=== PATIENT | female | born 1990 | race American Indian/Alaskan Native ===

== ENCOUNTER 2022-05-29 13:25 | Outpatient (CLI) | payer OTHER ==
[2022-05-29] MEDS ORDERED: LACTATED RINGERS 1,000 ML IV ONE (13:35)
--- NOTE | 2022-05-29 15:17 | Ultrasound Report ---
ULTRASOUND OBSTETRIC COMPLETE INDICATION / CLINICAL INFORMATION: Evaluate well-being. No care. Clinical Gestational Age (GA) in weeks.days: 26.5 TECHNIQUE: Transabdominal. COMPARISON: None available. FINDINGS: NUMBER: Single PRESENTATION: cephalic PLACENTA: anterior and free of the os. MATERNAL ADNEXA: No significant abnormality. AMNIOTIC FLUID VOLUME: normal AMNIOTIC FLUID INDEX (YANELY) in cm (if measured): Not measured ANATOMY: organs (including the bladder, stomach, kidneys, heart, umbilical cord, diaphragm, cord inserti on, spine and intracranial structures) are visualized and show no significant abnormality with the fo llowing exception(s): None. MEASUREMENTS: - Biparietal Diameter = 6.96 cm = 28.0 weeks.days - Head Circumference = 25.75 cm = 28.0 weeks.days - Abdominal Circumference = 25.44 cm = 29.4 weeks.days - Femur Length = 5.25 cm = 28.0 weeks.days - Estimated Weight (in grams, if calculated): 1285 - Heart Rate (beats per minute): 145 ADDITIONAL FINDINGS: None. PERCENTILE ESTIMATED WEIGHT (if calculated): 98 AVERAGE ULTRASOUND AGE (AUA) in weeks.days = 28.3 IMPRESSION: 1. Single intrauterine with AUA of 28.3 weeks.days 2. No significant sonographic abnormality. Signer Name: Artie Velazquez MD Signed: 05/29/2022 3:13 PM Workstation Name: [id number]
[2022-05-29 16:24] LABS: Basophils # (Auto) 0.1 K/mm3 (0.0-0.1); Basophils % (Auto) 1.4 % (0.0-1.8); Eosinophils # (Auto) 0.1 K/mm3 (0.0-0.4); Eosinophils % (Auto) 1.7 % (0.0-4.3); Hemoglobin 11.2 gm/dl (10.1-14.3); Lymphocytes # (Auto) 1.6 K/mm3 (1.2-5.4); Lymphocytes % (Auto) 21.2 % (13.4-35.0); Mean Corpuscular HGB Conc 33 % (30-34); Mean Corpuscular Volume 94 fl (79-97); Monocytes # (Auto) 0.6 K/mm3 (0.0-0.8); Monocytes % (Auto) 8.2 % (0.0-7.3); Platelet Count 370 K/mm3 (140-440); Red Blood Count 3.63 M/mm3 (3.65-5.03); Red Cell Distribution Width 13.4 % (13.2-15.2)
[2022-05-29 16:32] LABS: Bilirubin,Urine NEG (Negative); Blood,Urine NEG (Negative); Color,Urine Yellow (Yellow); Protein,Urine <15 mg/dL mg/dL (Negative)
[2022-05-29 16:34] LABS: Mucus,Urine FEW /HPF
[2022-05-29 16:40] LABS: Amphetamine Screen,Urine Negative; Benzodiazepines Screen,Urine Negative; Cannabinoid Screen,Urine Negative; Cocaine Screen,Urine Negative; Methadone Screen,Urine Negative; Opiate Screen,Urine Negative
[2022-05-29 16:41] LABS: Alanine Aminotransferase 9 units/L (7-56); Albumin 3.5 g/dL (3.9-5); Blood Urea Nitrogen 4 mg/dL (7-17); Calcium 8.1 mg/dL (8.4-10.2); Hemolysis Index 2
[2022-05-29 16:50] LABS: BUN/Creatinine Ratio 8
[2022-05-29] MEDS ORDERED: TERBUTALINE 1 MG/1 ML INJ SUB-Q PRN (16:54)
[2022-05-29 18:28] VITALS: BP 110/56
== END 2022-05-29 18:51 | disposition home or self-care (01) ==
LOC: TRG 13:25 → APU 13:42 → TRG 18:51
PROVIDERS: ATTEND Obstetrics & Gynecology
DX: O62.9 Abnormality of forces of labor, unspecified (principal); Z3A.28 28 weeks gestation of pregnancy; Z87.891 Personal history of nicotine dependence
CPT/HCPCS: 36415; 76805; 80053; 80307; 81001; 85025; 86592; 86706; 86762; 87806; 96372; J3105; J7120